=== PATIENT | female | born 1990 | race Two or more races ===

== ENCOUNTER 2022-11-17 10:24 | Inpatient (IN) | payer MEDICAID ==
[2022-11-17] VITALS (11 sets, daily range): BP systolic 94–125; BP diastolic 58–73
[~2022-11-17] VITALS: Ht 160 cm; Wt 78.8 kg
[~2022-11-17 10:24] MED LIST: PREN1TAB71 OR
[2022-11-17 11:27] LABS: Eosinophils # (auto) 0.1 10 ^3/uL (0-0.8); Eosinophils % (auto) 3.7 % (0.0-7.0); Monocytes # (auto) 0.3 10 ^3/uL (0-1.3); Neutrophils # (auto) 1.1 10 ^3/uL (1.6-8.6); Nucleated Red Blood Cells % 0.4 %; Red Blood Cells 3.09 10^6/uL (4.0-5.20)
[2022-11-17 11:28] LABS: Basophils # (auto) 0 10 ^3/uL (0-0.2); Basophils % (auto) 1.2 % (0.0-2.0); Hematocrit 16.9 % (36.0-46.0); Lymphocytes # (auto) 1.3 10 ^3/uL (0.4-5.4); Lymphocytes % (auto) 45.1 % (10.0-50.0); Mean Corpuscular Hemoglobin 15.5 pg (28.0-32.0); Mean Corpuscular Hgb Conc. 28.4 g/dL (32.0-36.0); Mean Corpuscular Volume 54.5 fL (80.0-100.0); Monocytes % (auto) 9.6 % (0.0-12.0); Neutrophils % (auto) 40.4 % (37.0-80.0); White Blood Cell 2.8 10^3/uL (4.4-10.8)
[2022-11-17 11:33] LABS: Red Cell Distribution Width 20.6 % (11.8-14.3)
[2022-11-17 11:36] LABS: Hemoglobin 4.8 g/dL (12.2-16.2)
[2022-11-17 11:52] LABS: Albumin 3.6 g/dL (3.4-5.0); Calcium 8.1 mg/dL (8.5-10.1); Potassium 3.8 mmol/L (3.5-5.1)
[2022-11-17 11:55] LABS: BUN/Creatinine Ratio 11.3; Bilirubin, Total 0.2 mg/dL (0.2-1.0); INR 0.95 (0.9-1.15); Partial Thromboplastin Time 20.5 sec (24.6-33.4); Total Protein 6.8 g/dL (6.4-8.2)
[2022-11-17] MEDS ORDERED: HYDROcodone-ACET 5/325MG TAB PO PRN (13:15)
[2022-11-17] MEDS ORDERED: ONDANSETRON HCL 4 MG/2 ML VIAL IV PRN (13:15)
[2022-11-17] MEDS ORDERED: MAALOX PLUS or MAALOX 30 ML PO PRN (13:15)
[2022-11-17] MEDS ORDERED: DOCUSATE SOD 100 MG CAP PO PRN (13:15)
[2022-11-17] MEDS ORDERED: ACETAMINOPHEN 325 MG TAB PO PRN (13:15)
[2022-11-17] MEDS ORDERED: LORazepam 0.5 MG TAB PO PRN (13:15)
[2022-11-17] MEDS ORDERED: MORPHINE SULFATE INJ 2 MG/ml SYRG IV PRN (13:15)
[2022-11-17] MEDS ORDERED: RHO (D) IMMUNE GLOBULIN 300 MCG INJ IM PRN (14:30)
[2022-11-17] MEDS: SODIUM CHLORIDE 0.9% 1,000 ML IV SCH ×2 (16:02→23:40)
[2022-11-17 18:45] LABS: Lymphocytes # (auto) 1.8 10 ^3/uL (0.4-5.4); Mean Corpuscular Hemoglobin 19.4 pg (28.0-32.0); Monocytes # (auto) 0.4 10 ^3/uL (0-1.3); White Blood Cell 6.7 10^3/uL (4.4-10.8)
[2022-11-17 18:46] LABS: Basophils # (auto) 0 10 ^3/uL (0-0.2); Basophils % (auto) 0.6 % (0.0-2.0); Eosinophils # (auto) 0 10 ^3/uL (0-0.8); Eosinophils % (auto) 0.6 % (0.0-7.0); Hematocrit 21.5 % (36.0-46.0); Lymphocytes % (auto) 27.2 % (10.0-50.0); Mean Corpuscular Hgb Conc. 31.2 g/dL (32.0-36.0); Mean Corpuscular Volume 62.3 fL (80.0-100.0); Monocytes % (auto) 6.6 % (0.0-12.0); Neutrophils # (auto) 4.3 10 ^3/uL (1.6-8.6); Nucleated Red Blood Cells % 0.1 %; Red Blood Cells 3.44 10^6/uL (4.0-5.20)
[2022-11-17 19:45] LABS: Hemoglobin 6.7 g/dL (12.2-16.2)
[2022-11-17 20:15] LABS: Urine Bacteria NONE SEEN /hpf (None Seen); Urine Blood 3+ /uL (Negative); Urine Mucus FEW (None Seen); Urine Specific Gravity 1.018 (1.001-1.035); Urine WBC 2 /hpf (0 - 5)
[2022-11-18 00:17] VITALS: BP 115/65
[2022-11-18 01:16] LABS: Hematocrit 27.5 % (36.0-46.0); Hemoglobin 8.6 g/dL (12.2-16.2)
[2022-11-18 05:13] LABS: Basophils # (auto) 0 10 ^3/uL (0-0.2); Eosinophils # (auto) 0.1 10 ^3/uL (0-0.8); Eosinophils % (auto) 2.3 % (0.0-7.0); Hematocrit 27.7 % (36.0-46.0); Mean Corpuscular Hemoglobin 20.3 pg (28.0-32.0); Monocytes # (auto) 0.5 10 ^3/uL (0-1.3); Neutrophils # (auto) 2.4 10 ^3/uL (1.6-8.6); Nucleated Red Blood Cells % 0.7 %
[2022-11-18 05:14] LABS: Basophils % (auto) 0.5 % (0.0-2.0); Hemoglobin 8.5 g/dL (12.2-16.2); Lymphocytes % (auto) 39.4 % (10.0-50.0); Mean Corpuscular Hgb Conc. 30.9 g/dL (32.0-36.0); Mean Corpuscular Volume 65.9 fL (80.0-100.0); Monocytes % (auto) 9.3 % (0.0-12.0); Neutrophils % (auto) 48.5 % (37.0-80.0)
[2022-11-18 05:21] LABS: Red Cell Distribution Width 30.6 % (11.8-14.3)
[2022-11-18 05:32] LABS: BUN/Creatinine Ratio 13.1; Calcium 7.9 mg/dL (8.5-10.1); Potassium 3.7 mmol/L (3.5-5.1)
[2022-11-18 08:00] VITALS: BP 118/64
== END 2022-11-18 10:00 | disposition home or self-care (01) | DRG 532 ==
LOC: ER 10:26 → OVERFLOW 13:14
PROVIDERS: ADMIT Hospitalist; ATTEND Internal Medicine
PROC: 30233N1 Transfusion of Nonautologous Red Blood Cells into Peripheral Vein, Percutaneous Approach (ICD-10-PCS; principal; 2022-11-17)
DX: N92.0 Excessive and frequent menstruation with regular cycle (principal); D62 Acute posthemorrhagic anemia; D25.9 Leiomyoma of uterus, unspecified; Z20.822 Contact with and (suspected) exposure to COVID-19
CPT/HCPCS: 36415; 76856; 80048; 80053; 81001; 81025; 84702; 85014; 85018; 85025; 85610; 85730; 86850; 86900; 86901; 86920; 87426; 93005; 96361; 96374; 96375; 99291; G0378; J2405

== ENCOUNTER 2023-10-24 00:19 | Emergency (ER) | payer MEDICAID ==
[~2023-10-24] VITALS: Ht 162.6 cm; Wt 72.3 kg
[2023-10-24] MEDS ORDERED: ACETAMINOPHEN 325 MG TAB PO ONE (04:00)
[2023-10-24 04:52] VITALS: BP 121/82; PULSE 109; RESP 22; TEMP 98; O2SAT 99
[2023-10-24] MEDS ORDERED: CYCL-837 PO (05:01)
[2023-10-24] MEDS ORDERED: IBUP-1456 PO (05:01)
== END 2023-10-24 07:28 | disposition home or self-care (01) ==
LOC: EDBD 00:19 → ER 00:19
DX: S30.0XXA Contusion of lower back and pelvis, initial encounter (principal); S09.8XXA Other specified injuries of head, initial encounter; Z90.710 Acquired absence of both cervix and uterus; Y04.2XXA Assault by strike against or bumped into by another person, initial encounter; Y93.89 Activity, other specified; Y92.89 Other specified places as the place of occurrence of the external cause; Y99.8 Other external cause status
CPT/HCPCS: 70450; 72220